=== PATIENT | female | born 1970 | race Caucasian/White ===

== ENCOUNTER → 2019-08-30 15:26 | Outpatient (CLI) | payer OTHER, SELFPAY ==
--- NOTE | ~2019-08-30 | XR_ITS ---
XR chest 2V DATE: 08/30/2019 15:40 INDICATION: Cough TECHNIQUE: PA and lateral views COMPARISON: None FINDINGS: Normal heart size. No hilar or mediastinal enlargement. No pulmonary infiltrate or consolid ation, pleural effusion or pulmonary vascular congestion or pneumothorax. IMPRESSION: No active cardiopulmonary disease Reviewed, dictated and finalized at location B. [employer]PERATOR
== END ==
PROVIDERS: Visit Provider Nurse Practitioner
DX: R05 Cough (principal)
CPT/HCPCS: 71046

== ENCOUNTER 2020-08-12 12:13 | Emergency (ER) | payer OTHER, SELFPAY ==
--- NOTE | ~2020-08-12 | XR_ITS ---
EXAMINATION: XR ankle RT min 3V INDICATION: Right ankle pain TECHNIQUE: Four views of the right ankle are obtained. COMPARISON: None available FINDINGS: There is no fracture, dislocation, or subluxation. The bones, soft tissues, and joint space s are normal. IMPRESSION: 1. No acute osseous abnormality. Reviewed, dictated and finalized at location A. [employer]
--- NOTE | 2020-08-12 12:15 | ED.GENADULT ---
HPI - General Adult General Chief complaint: Extremity Injury, Lower Stated complaint: Right ankle pain Time Seen by Provider: 08/12/20 12:15 Source: patient Mode of arrival: ambulatory Limitations: no limitations History of Present Illness HPI narrative: 50-year-old female patient presents to the [facility] with complaints of right foot pain. Patient states that she slipped and fell on the ice about 430 this morning. Patient states she did take some ibuprofen for the pain. Patient states that most the pain is on the lateral side of the right foot and ankle. Patient denies any numbness or tingling. Related Data Home Medications Medication Instructions Recorded Confirmed amitriptyline 08/12/20 citalopram mg 08/12/20 Allergies Allergy/AdvReac Type Severity Reaction Status Date / Time aloe Allergy Unknown SEVERE RASH Unverified 10/09/08 12:01 PEACHES Allergy Mild EYES Uncoded 03/24/06 06:49 SWELLING nkfa Allergy Unknown Uncoded 12/18/02 12:31 Review of Systems Review of Systems: Narrative: CONSTITUTIONAL: Denies fever, chills, or sweats. EYES: Denies visual changes, redness, or discharge. ENT: Denies rhinorrhea, congestion, sore throat, or otalgia. CARDIOVASCULAR: Denies chest pain, palpitations, or edema. RESPIRATORY: Denies cough or dyspnea. GASTROINTESTINAL: Denies abdominal pain, nausea, vomiting, or diarrhea. GENITOURINARY: Denies dysuria or hematuria. SKIN: Denies rash or itching. MUSCULOSKELETAL: Denies back pain, joint pain, or myalgia. Positive right foot and ankle pain NEUROLOGIC: Denies headache, numbness, or weakness. PSYCHIATRIC: Denies anxiety or depression. [facility] Past Medical History Medical History (Updated 08/12/20 @ 13:05 by NORAH Cruz) Anxiety Degenerative disc disease Endometriosis Fractures Right ankle fracture, fingers, toes Ovarian cyst depression induced hypertension Surgical History Surgical History (Updated 08/12/20 @ 12:17 by NORAH Cruz) H/O dilation and curettage H/O laminectomy H/O tubal ligation History of tonsillectomy Family History Family History (Updated 08/12/20 @ 12:20 by NORAH Cruz) Other Anemia Social History Social History (Updated 08/12/20 @ 12:21 by JOSE Cruz Alcohol intake: current Alcohol use details: socially Exam Narrative: Exam Narrative: GENERAL: Well-appearing, well-nourished, and in no acute distress. HEAD: Normocephalic, atraumatic. EYES: PERRLA and EOMI. ENT: Nares clear, no rhinorrhea or epistaxis. Mucous membranes moist. NECK: Supple. No lymphadenopathy CHEST: Clear to auscultation. No respiratory distress. HEART: Regular rate and rhythm. No murmur heard. Normal peripheral pulses. ABDOMEN: Soft, nontender, nondistended, normal active bowel sounds. EXTREMITIES: Patient is able to bear weight and ambulate with pain to right ankle. The R ankle is without obvious asymmetry or deformity when compared to the L ankle. Patient can flex/extend, invert/nancy. No obvious surface trauma, or soft tissue swelling. Patient does have some bruising noted to the lateral side of the right ankle that does extend over the lateral malleolus. By me tenderness to palpation over the lateral malleolus. Pain over the anterior talofibular ligament, no pain over the posterior talofibular ligament, calcaneofibular ligament nontender and without swelling. No tenderness or deformity of the midfoot or over the proximal fifth metatarsal. Good DP and posterior tibial pulses and sensation to light touch normal. Talar tilt test is negative for ligament laxity to valgus or vargus stress. Negative anterior draw. Peroneal nerve is intact with strong eversion and plantar flexion. SKIN: Warm, dry, no rash. NEURO: No focal deficits. Alert and oriented x3. Course Reevaluation(s) Reevaluation #1: Reevaluated patient after her x-ray resulted. Notified her that the x-ray does not show any evidence o
[2020-08-12 12:38] VITALS: BP 141/72; PULSE 77; RESP 16; TEMP 36.4; O2SAT 100
== END 2020-08-12 13:10 | disposition home or self-care (01) ==
PROVIDERS: Emergency Provider Nurse Practitioner Family
DX: S93.401A Sprain of unspecified ligament of right ankle, initial encounter (principal); W00.9XXA Unspecified fall due to ice and snow, initial encounter; N80.9 Endometriosis, unspecified; F41.9 Anxiety disorder, unspecified
CPT/HCPCS: 73610; 99213; G0463

== ENCOUNTER 2022-12-01 14:57 | Outpatient (CLI) | payer OTHER, SELFPAY ==
--- NOTE | ~2022-12-01 | MR_ITS ---
EXAMINATION: MR abdomen wo/w con INDICATION: Liver lesion TECHNIQUE: Coronal SSFSE ARC, WATER:coronal LAVA-FLEX, Coronal 2D FIESTA FatSat, Axial SSFSE BH ARC, Axial 3D DualEcho BH, Axial SSFSE-IR, Axial DWI b=500, Axial 2D FIESTA FatSat, pre and dynamic postco ntrast Axial LAVA ARC, postcontrast Coronal In and Opposed phase LAVA FLEX COMPARISON: None available CONTRAST: Multihance, 20 cc FINDINGS: There is loss of hepatic parenchymal signal on opposed phase imaging, consistent with hepat ic steatosis. There is a 2.0 cm area of focal fatty sparing of the liver adjacent to the gallbladder fossa. No suspicious liver mass is identified. The spleen, pancreas, gallbladder, and adrenal glands are normal. The right kidney is unremarkable. There is a 3 mm cyst of the left kidney. There are no p athologically enlarged abdominal lymph nodes. No dilated loops of bowel are evident. IMPRESSION: 1. Diffuse hepatic steatosis with focal sparing of the liver adjacent to the gallbladder fossa. No padilla spicious liver mass identified. Reviewed, dictated and finalized at location F. IMPRESSION: 1. Diffuse hepatic steatosis with focal sparing of the liver adjacent to the ga llbladder fossa. No suspicious liver mass identified.
== END 2022-12-01 14:58 ==
DX: K76.89 Other specified diseases of liver (principal); K76.0 Fatty (change of) liver, not elsewhere classified
CPT/HCPCS: 74183; A9577

== ENCOUNTER → 2023-01-26 16:15 | Outpatient (CLI) | payer OTHER, SELFPAY ==
--- NOTE | ~2023-01-26 | MM_ITS ---
EXAMINATION: MM screening lisa BI w vinayak HISTORY: Screening mammogram, family history of breast cancer in her mother. TECHNIQUE: Craniocaudal and mediolateral oblique 3-D tomosynthesis images were obtained and synthetic 2-D images were generated. CAD analysis was submitted and interpreted. COMPARISON: No prior mammogram is available for comparison at this institution. BREAST PARENCHYMAL COMPOSITION:There are scattered areas of fibroglandular density. FINDINGS: No suspicious mass, calcification, or architectural distortion are identified in either luis enrique ast to suggest malignancy. IMPRESSION: No mammographic evidence of malignancy. Recommend routine screening mammography in one year. BI-RADS Category 1: Negative Reviewed, dictated and finalized at location .
== END ==
PROVIDERS: PCP Nurse Practitioner Family; Visit Provider Nurse Practitioner Family
DX: Z12.31 Encounter for screening mammogram for malignant neoplasm of breast (principal)
CPT/HCPCS: 77063; 77067

== ENCOUNTER 2024-03-01 10:15 | Emergency (ER) | payer OTHER, SELFPAY ==
--- NOTE | ~2024-03-01 | CT_ITS ---
EXAMINATION: CT lumbar spine wo con DATE: 03/01/2024 11:36 INDICATION: Right low back pain radiating down the right lower limb. TECHNIQUE: Computed tomography (CT) of the lumbar spine was performed without intravenous contrast. A utomated exposure control and iterative reconstruction technique were employed. The dose-length produ ct was 921.77 mGy-cm. COMPARISON: None FINDINGS: Alignment is normal. Vertebral body heights are normal. No fracture. Severe disc height loss with deg enerative endplate changes at L5-S1. Mild disc height loss at L3-L4 and L4-L5. Relatively lucent T10 hemangioma with thickened internal trabecula pattern. Mild dependent atelectasis in the visualized po sterior lung bases. Paravertebral soft tissues are unremarkable. Normal appendix. The following disc levels are specifically discussed: T10-T11: The disc does not extend beyond the endplate margins. There is mild bilateral facet osteoart hritis. There is no neural foraminal stenosis. There is no central canal stenosis. T11-T12: The disc does not extend beyond the endplate margin. There is mild bilateral facet joint ost eoarthritis. There is no neural foraminal stenosis. There is no central canal stenosis. T12-L1: The disc does not extend beyond the endplate margin. There is mild bilateral facet joint oste oarthritis. There is no neural foraminal stenosis. There is no central canal stenosis. L1-L2: Disc is mildly bulging. There is mild bilateral facet joint osteoarthritis. There is no neural foraminal stenosis. There is minimal central canal stenosis. L2-L3: Disc is mildly bulging. There is mild bilateral facet joint osteoarthritis. There is no neural foraminal stenosis. There is minimal central canal stenosis. L3-L4: Disc is bulging. There is mild bilateral facet joint osteoarthritis. There is mild bilateral n eural foraminal stenosis. There is mild central canal stenosis. L4-L5: Disc is bulging. There is moderate right and moderate to severe left facet joint osteoarthriti s. There is mild bilateral neural foraminal stenosis. There is mild central canal stenosis. L5-S1: Small posterior disc osteophyte complex. There is mild bilateral facet joint osteoarthritis. T here is mild bilateral, right greater than left, neural foraminal stenosis. There is no central canal stenosis. IMPRESSION: 1. Severe lumbosacral and mild lumbar spondylosis. Reviewed, dictated and finalized at location A.
[2024-03-01 10:27] VITALS: BP 100/69; PULSE 92; RESP 16; TEMP 36.7
--- NOTE | 2024-03-01 11:05 | ED.BACK ---
HPI - Back Pain/Injury General Chief Complaint: Back Pain/Injury Stated Complaint: lower back pain since Tuesday. Time Seen by Provider: 03/01/24 10:54 Source: patient Mode of arrival: ambulatory Limitations: no limitations History of Present Illness HPI Narrative: this is a 54-year-old female who presents to the ED with chief complaint of low back pain x3 days. Patient reports pain is on the right side and radiates down the right lower extremity. States that she had a problem like this are all 20 years ago and had an L5-S1 laminectomy at that time. Has not had any neuro surgical issue since then. States that she does note the pain started while playing golf the other day and has gotten progressively worse. Denies associated fevers, chills, numbness, weakness, bowel or bladder dysfunction. Related Data Home Medications Medication Instructions Recorded Confirmed amitriptyline 10 mg tablet 08/12/20 citalopram 40 mg tablet mg 08/12/20 Allergies Allergy/AdvReac Type Severity Reaction Status Date / Time aloe Allergy Unknown SEVERE RASH Verified 03/01/24 11:13 PEACHES Allergy Mild EYES Uncoded 11/26/21 16:24 SWELLING nkfa Allergy Unknown Unknown Uncoded 03/01/24 11:13 Review of Systems Review of Systems: All systems as dictated in [facility] Past Medical History Medical History (Updated 03/01/24 @ 12:28 by Leoncio Edwards PA-C) Anxiety Degenerative disc disease Endometriosis Fractures Right ankle fracture, fingers, toes Ovarian cyst depression induced hypertension Surgical History Surgical History (System 11/26/21 @ 16:24 by Alla Daugherty) H/O dilation and curettage H/O laminectomy H/O tubal ligation History of tonsillectomy Family History Family History (System 11/26/21 @ 16:24 by Alla Daugherty) Other Anemia Social History Social History (System 11/26/21 @ 16:24 by Alla Daugherty) Alcohol intake: current Alcohol use details: socially Exam Narrative: GENERAL: Well-appearing, well-nourished, and in no acute distress. HEAD: Normocephalic, atraumatic. EYES: PERRLA and EOMI. ENT: Nares clear, no rhinorrhea or epistaxis. Mucous membranes moist. Oropharynx without tonsillar hypertrophy exudate or other lesions. NECK: Supple. No adenopathy or masses. CHEST: No respiratory distress. Clear to auscultation. No wheezes rales or rhonchi HEART: Regular rate and rhythm. No murmur heard. Normal peripheral pulses. ABDOMEN: Soft, nontender, nondistended, normal active bowel sounds. MSK: Lumbar paraspinal tenderness on the right side. No midline spinal tenderness throughout . ambulatory without assistance. 5/5 strength and sensation in the upper and lower extremities. Straight leg raise on the right positive and negative on the left. SKIN: Warm, dry, no rash. NEURO: Alert and oriented x4. No focal deficits. PSYCH: Normal mood and affect. Course Vital Signs Vital signs: Vital Signs Temperature 98.0 F 03/01/24 10:27 Pulse Rate 92 03/01/24 10:27 Respiratory Rate 16 03/01/24 10:27 Blood Pressure 100/69 03/01/24 10:27 Oxygen Delivery Room Air 03/01/24 10:27 Temperature 98.0 F 03/01/24 10:27 Pulse Rate 72 03/01/24 12:49 Respiratory Rate 18 03/01/24 12:49 Blood Pressure 120/65 03/01/24 12:49 Pulse Oximetry 100 03/01/24 12:49 Oxygen Delivery Room Air 03/01/24 10:27 MDM - Back Pain/Injury MDM Narrative Medical decision making narrative: This is a 54-year-old female who presents to the ED with chief complaint of low back pain radiating into the right lower leg. Vitals are normal. Exam is remarkable for the above. Straight leg raise on the right positive. No strength or sensation deficit. No other red flag signs for back pain. CT lumbar shows diffuse degenerative disc disease. Patient has improved somewhat with Toradol, Valium, lidocaine patch and Tylenol. Presentation consistent with lum
[2024-03-01] MEDS: LIDOCAINE 5% PATCH 1 PATCH TRANSDERM (11:19)
[2024-03-01] MEDS: KETOROLAC 30 MG/ML VIAL (*BKC) IV PUSH (11:19)
[2024-03-01] MEDS: ACETAMINOPHEN 500 MG TABLET 1000 MG PO (11:19)
[2024-03-01] MEDS: diazePAM INJ (*CRX) 10 MG/2 ML SYRINGE 5 MG IV PUSH (11:20)
[2024-03-01 12:49] VITALS: BP 120/65; PULSE 72; RESP 18; O2SAT 100
== END 2024-03-01 12:53 | disposition home or self-care (01) ==
PROVIDERS: Emergency Provider Physician Assistant; PCP Nurse Practitioner Family
DX: M54.16 Radiculopathy, lumbar region (principal); F41.9 Anxiety disorder, unspecified
CPT/HCPCS: 72131; 96374; 96375; 99284; A9270; J1885; J3360